=== PATIENT | male | born 1950 | race Caucasian/White ===

== ENCOUNTER 2021-02-20 23:23 | Emergency (ER) | payer MEDICARE ==
[2021-02-21 00:09] LABS: #Basophils 0.1 10x3/uL (0.0-0.2); #Eosinphils 0.1 10x3/uL (0.0-0.5); #Monocytes 0.6 10x3/uL (0.0-1.1); #Neutrophils 6.6 10x3/uL (1.5-8.4); %Basophils 0.6 % (0.0-2.0); %Eosinophils 1.4 % (0.0-6.0); %Lymphocytes 25.3 % (18.0-47.0); %Monocytes 6.3 % (0.0-10.0); %Neutrophils 65.9 % (40.0-75.0); Hemoglobin 13.1 g/dL (13.5-17.5); Mean Corpuscular HGB CONC 33.6 g/dL (32.0-36.0); Mean Corpuscular Hemoglobin 29.6 pg (27.0-33.0); Mean Corpuscular Volume 88.2 fl (81.2-95.1); Mean Platelet Volume 10.5 fl (7.4-10.4); Platelet Count 242 10x3/uL (150-450); RBC Distribution Width 13.5 % (11.5-14.5); Red Blood Cell (RBC) Count 4.42 10x6/uL (4.32-5.72)
[2021-02-21 00:17] LABS: ALT (SGPT) 8 U/L (8-55); AST (SGOT) 13 U/L (5-34); Alkaline Phosphatase 34 U/L (40-110); Anion Gap 14 mmol/L (10-20); BUN (Urea Nitrogen) 15 mg/dL (8.4-25.7); Bilirubin, Total 0.2 mg/dL (0.2-1.2); Calc. Creatinine Clearance 0 mL/min (70-130); Calcium 9.1 mg/dL (7.8-10.44); Carbon Dioxide 24 mmol/L (23-31); Chloride 105 mmol/L (98-107); Globulin 2.3 g/dL (2.4-3.5); Glucose 127 mg/dL (80-115); Potassium 4.1 mmol/L (3.5-5.1); Protein, Total 6.3 g/dL (5.8-8.1); Sodium 139 mmol/L (136-145)
[2021-02-21] MEDS ORDERED: Labetalol HCl 100 MG/20 ML VIAL ONE (01:23)
== END 2021-02-21 01:35 | disposition home or self-care (01) ==
LOC: CSHERS 23:23
DX: I10 Essential (primary) hypertension (principal); E11.42 Type 2 diabetes mellitus with diabetic polyneuropathy; E78.5 Hyperlipidemia, unspecified; E78.00 Pure hypercholesterolemia, unspecified; I25.10 Atherosclerotic heart disease of native coronary artery without angina pectoris; I25.2 Old myocardial infarction; I48.91 Unspecified atrial fibrillation; K21.9 Gastro-esophageal reflux disease without esophagitis; J44.9 Chronic obstructive pulmonary disease, unspecified; G47.30 Sleep apnea, unspecified; F17.210 Nicotine dependence, cigarettes, uncomplicated; Z79.82 Long term (current) use of aspirin; Z79.899 Other long term (current) drug therapy; Z79.84 Long term (current) use of oral hypoglycemic drugs
CPT/HCPCS: 36416; 71045; 80053; 84484; 85025; 93005; 96374

== ENCOUNTER 2021-11-02 23:18 | Emergency (ER) | payer MEDICARE ==
[2021-11-03 00:13] LABS: ALT (SGPT) 9 U/L (8-55); AST (SGOT) 20 U/L (5-34); Albumin 4.1 g/dL (3.4-4.8); Alkaline Phosphatase 36 U/L (40-110); Anion Gap 15 mmol/L (10-20); BUN (Urea Nitrogen) 12 mg/dL (8.4-25.7); Bilirubin, Total 0.3 mg/dL (0.2-1.2); Calc. Creatinine Clearance 0 mL/min (70-130); Calcium 9.3 mg/dL (7.8-10.44); Carbon Dioxide 24 mmol/L (23-31); Chloride 103 mmol/L (98-107); Glucose 146 mg/dL (80-115); Potassium 4.6 mmol/L (3.5-5.1); Protein, Total 7.1 g/dL (5.8-8.1); Sodium 137 mmol/L (136-145)
[2021-11-03 00:35] LABS: #Basophils 0.1 10x3/uL (0.0-0.2); #Eosinphils 0.1 10x3/uL (0.0-0.5); #Monocytes 0.6 10x3/uL (0.0-1.1); #Neutrophils 6.9 10x3/uL (1.5-8.4); %Basophils 0.8 % (0.0-2.0); %Eosinophils 1.2 % (0.0-6.0); %Lymphocytes 25.2 % (18.0-47.0); %Monocytes 5.8 % (0.0-10.0); %Neutrophils 66.7 % (40.0-75.0); Hemoglobin 12.3 g/dL (13.5-17.5); Mean Corpuscular HGB CONC 32.5 g/dL (32.0-36.0); Mean Corpuscular Hemoglobin 29.3 pg (27.0-33.0); Mean Corpuscular Volume 90.2 fl (81.2-95.1); Mean Platelet Volume 10.7 fl (7.4-10.4); Platelet Count 254 10x3/uL (150-450); RBC Distribution Width 13.6 % (11.5-14.5); White Blood Cell (WBC) Count 10.3 10x3/uL (3.5-10.5)
[2021-11-03 01:44] LABS: Troponin I Less than 0.010 ng/mL (< 0.028)
== END 2021-11-03 02:07 | disposition home or self-care (01) ==
LOC: CSHERS 23:18
DX: R07.89 Other chest pain (principal); R42 Dizziness and giddiness; R00.2 Palpitations; I25.10 Atherosclerotic heart disease of native coronary artery without angina pectoris; I25.2 Old myocardial infarction; I48.91 Unspecified atrial fibrillation; K21.9 Gastro-esophageal reflux disease without esophagitis; E78.5 Hyperlipidemia, unspecified; E78.00 Pure hypercholesterolemia, unspecified; I10 Essential (primary) hypertension; E11.40 Type 2 diabetes mellitus with diabetic neuropathy, unspecified; J44.9 Chronic obstructive pulmonary disease, unspecified; G47.30 Sleep apnea, unspecified; F17.210 Nicotine dependence, cigarettes, uncomplicated; Z79.82 Long term (current) use of aspirin; Z79.84 Long term (current) use of oral hypoglycemic drugs; Z79.899 Other long term (current) drug therapy
CPT/HCPCS: 36415; 71045; 80053; 84484; 85025; 93005

== ENCOUNTER 2022-09-15 08:58 | Observation (INO) | payer MEDICARE ==
[2022-09-15 09:50] LABS: #Basophils 0.1 10x3/uL (0.0-0.2); #Eosinphils 0.1 10x3/uL (0.0-0.5); #Monocytes 0.5 10x3/uL (0.0-1.1); #Neutrophils 5.4 10x3/uL (1.5-8.4); %Eosinophils 1.2 % (0.0-6.0); %Lymphocytes 24.3 % (18.0-47.0); %Monocytes 6.2 % (0.0-10.0); %Neutrophils 67.1 % (40.0-75.0); Hemoglobin 13.1 g/dL (13.5-17.5); Mean Corpuscular HGB CONC 34.2 g/dL (32.0-36.0); Mean Corpuscular Hemoglobin 30.2 pg (27.0-33.0); Mean Corpuscular Volume 88.2 fl (81.2-95.1); Mean Platelet Volume 10.2 fl (7.4-10.4); Platelet Count 252 10x3/uL (150-450); RBC Distribution Width 13.6 % (11.5-14.5); Red Blood Cell (RBC) Count 4.34 10x6/uL (4.32-5.72); White Blood Cell (WBC) Count 8.1 10x3/uL (3.5-10.5)
[2022-09-15 09:58] LABS: ALT (SGPT) 13 U/L (8-55); AST (SGOT) 15 U/L (5-34); Albumin 4.3 g/dL (3.4-4.8); Alkaline Phosphatase 34 U/L (40-110); Anion Gap 12 mmol/L (10-20); BUN (Urea Nitrogen) 16 mg/dL (8.4-25.7); Bilirubin, Total 0.4 mg/dL (0.2-1.2); Calc. Creatinine Clearance 0 mL/min (70-130); Calcium 9.6 mg/dL (7.8-10.44); Carbon Dioxide 26 mmol/L (23-31); Chloride 103 mmol/L (98-107); Estimated GFR 94; Globulin 2.3 g/dL (2.4-3.5); Glucose 98 mg/dL (83-110); Potassium 4.9 mmol/L (3.5-5.1); Protein, Total 6.6 g/dL (5.8-8.1); Sodium 136 mmol/L (136-145)
[2022-09-15] MEDS ORDERED: Morphine 2 MG/ML VIAL ONE (10:10)
[2022-09-15] MEDS ORDERED: Ondansetron PF 4 MG/2 ML Vial ONE (10:10)
[2022-09-15 14:03] LABS: Troponin I Less than 0.010 ng/mL (< 0.028)
[2022-09-15] MEDS ORDERED: Ondansetron ODT 4 MG TAB PO PRN (14:21)
[2022-09-15] MEDS ORDERED: Acetaminophen 325 MG TAB PO PRN (14:21)
[2022-09-15] MEDS ORDERED: Ondansetron PF 4 MG/2 ML Vial IVP PRN (14:21)
[2022-09-15] MEDS ORDERED: Nitroglycerin 0.4 MG TAB (25 Tab Bottle) SL PRN (14:23)
[2022-09-15] MEDS ORDERED: Dextrose 5% in Water 1,000 ML IV PRN (14:27)
[2022-09-15] MEDS ORDERED: Dextrose 50% Abboject 50 ML SYRINGE SLOW IVP PRN (14:27)
[2022-09-15] MEDS ORDERED: Docusate 100 MG CAP PO PRN (14:30)
[2022-09-15] MEDS ORDERED: Electrolyte Replacement Protocol 1 EACH FS SCH (14:30)
[2022-09-15 15:09] LABS: Magnesium 1.6 mg/dL (1.6-2.6)
[2022-09-15 16:38] LABS: Troponin I 0.015 ng/mL (< 0.028)
[2022-09-15] MEDS: Sotalol HCl 80 MG TAB PO SCH (20:24)
[2022-09-15] MEDS: metFORMIN 500 MG TAB PO SCH (20:25)
[2022-09-15] MEDS: Famotidine 20 MG TAB PO SCH (20:26)
[2022-09-15] MEDS: Lisinopril 20 MG TAB PO SCH (20:26)
[2022-09-15] MEDS: Apixaban 2.5 MG TAB PO SCH (20:27)
[2022-09-15] MEDS ORDERED: Magnesium 2 GM/50 ML(in water) 2 GM in Premix Bag 1 BAG IVPB SCH (21:00)
[2022-09-15] MEDS ORDERED: Atorvastatin Calcium 40 MG TAB PO SCH (21:00)
[2022-09-15] MEDS ORDERED: Sotalol HCl 80 MG TAB PO SCH (21:00)
[2022-09-15] MEDS ORDERED: traZODone HCl 150 MG TAB PO SCH (21:00)
[2022-09-16 01:57] VITALS: TEMP 97.7
[2022-09-16 04:35] LABS: #Basophils 0.1 10x3/uL (0.0-0.2); #Eosinphils 0.1 10x3/uL (0.0-0.5); #Monocytes 0.6 10x3/uL (0.0-1.1); #Neutrophils 4.3 10x3/uL (1.5-8.4); %Basophils 0.8 % (0.0-2.0); %Eosinophils 1.8 % (0.0-6.0); %Lymphocytes 34.2 % (18.0-47.0); %Neutrophils 54.8 % (40.0-75.0); Hemoglobin 12.4 g/dL (13.5-17.5); Mean Corpuscular HGB CONC 34.7 g/dL (32.0-36.0); Mean Corpuscular Hemoglobin 30.4 pg (27.0-33.0); Mean Corpuscular Volume 87.5 fl (81.2-95.1); Mean Platelet Volume 10.3 fl (7.4-10.4); Platelet Count 224 10x3/uL (150-450); RBC Distribution Width 13.4 % (11.5-14.5); Red Blood Cell (RBC) Count 4.08 10x6/uL (4.32-5.72); White Blood Cell (WBC) Count 7.8 10x3/uL (3.5-10.5)
[2022-09-16 04:42] LABS: Anion Gap 15 mmol/L (10-20); BUN (Urea Nitrogen) 18 mg/dL (8.4-25.7); Calc. Creatinine Clearance 147 mL/min (70-130); Calcium 9.1 mg/dL (7.8-10.44); Carbon Dioxide 23 mmol/L (23-31); Chloride 104 mmol/L (98-107); Estimated GFR 96; Glucose 110 mg/dL (83-110); Magnesium 1.6 mg/dL (1.6-2.6); Potassium 4.6 mmol/L (3.5-5.1); Sodium 137 mmol/L (136-145)
[2022-09-16] MEDS ORDERED: Magnesium 2 GM/50 ML(in water) 2 GM in Premix Bag 1 BAG IVPB SCH (06:00)
[2022-09-16] MEDS ORDERED: Glimepiride 2 MG TAB PO SCH (08:00)
[2022-09-16] MEDS ORDERED: Clopidogrel Bisulfate 75 MG TAB PO SCH (09:00)
[2022-09-16] MEDS ORDERED: Amlodipine 5 MG TAB PO SCH (09:00)
[2022-09-16] MEDS ORDERED: Ascorbic Acid 500 mg Chewable Tablet PO SCH (09:00)
[2022-09-16] MEDS ORDERED: Fenofibrate 48 MG TAB PO SCH (09:00)
[2022-09-16] MEDS: Famotidine 20 MG TAB PO SCH (09:50)
[2022-09-16] MEDS: Lisinopril 20 MG TAB PO SCH (09:50)
[2022-09-16] MEDS: Sotalol HCl 80 MG TAB PO SCH (09:51)
[2022-09-16] MEDS: Apixaban 2.5 MG TAB PO SCH (09:52)
[2022-09-16] MEDS: metFORMIN 500 MG TAB PO SCH (09:56)
[2022-09-16 11:23] VITALS: BMI 36.1
[2022-09-16 12:07] VITALS: BP 128/60
[2022-09-16] MEDS ORDERED: traZODone HCl 50 MG TAB PO SCH (21:00)
== END 2022-09-16 13:50 | disposition home or self-care (01) ==
LOC: CSHERS 08:58 → CSHTELE 15:56
PROVIDERS: ADMIT Family Medicine; ATTEND Family Medicine
DX: R07.89 Other chest pain (principal); E11.42 Type 2 diabetes mellitus with diabetic polyneuropathy; K21.9 Gastro-esophageal reflux disease without esophagitis; J44.9 Chronic obstructive pulmonary disease, unspecified; I25.118 Atherosclerotic heart disease of native coronary artery with other forms of angina pectoris; I25.2 Old myocardial infarction; E78.2 Mixed hyperlipidemia; Z79.01 Long term (current) use of anticoagulants; Z79.84 Long term (current) use of oral hypoglycemic drugs; Z79.899 Other long term (current) drug therapy; Z79.02 Long term (current) use of antithrombotics/antiplatelets; E66.9 Obesity, unspecified; Z68.36 Body mass index [BMI] 36.0-36.9, adult; I48.0 Paroxysmal atrial fibrillation; I65.23 Occlusion and stenosis of bilateral carotid arteries; F17.210 Nicotine dependence, cigarettes, uncomplicated; I11.0 Hypertensive heart disease with heart failure; I50.42 Chronic combined systolic (congestive) and diastolic (congestive) heart failure; N40.1 Benign prostatic hyperplasia with lower urinary tract symptoms; Z95.0 Presence of cardiac pacemaker; Z95.1 Presence of aortocoronary bypass graft
CPT/HCPCS: 71045; 80048; 80053; 82962 ×2; 83735 ×2; 83880; 84443; 84484 ×2; 85025 ×2; 93005; 94760 ×2; 96374; 99285; G0378 ×3; J2270; 36415; 36416; J2405; J3475; J7620

== ENCOUNTER 2024-03-28 15:38 | Observation (INO) | payer MEDICARE ==
[2024-03-28] MEDS ORDERED: Aspirin Chewable 81 MG TAB ONE (15:53)
[2024-03-28 16:09] LABS: #Basophils 0.07 10x3/uL (0.0-0.2); #Eosinphils 0.15 10x3/uL (0.0-0.5); #Monocytes 0.68 10x3/uL (0.0-1.1); #Neutrophils 6.18 10x3/uL (1.5-8.4); %Basophils 0.8 % (0.0-2.0); %Eosinophils 1.7 % (0.0-6.0); %Lymphocytes 17.8 % (18.0-47.0); %Monocytes 7.9 % (0.0-10.0); %Neutrophils 71.6 % (40.0-75.0); Hematocrit 33.9 % (38.8-50.0); Hemoglobin 11.1 g/dL (13.5-17.5); Mean Corpuscular HGB CONC 32.7 g/dL (32.0-36.0); Mean Corpuscular Hemoglobin 26.8 pg (27.0-33.0); Mean Corpuscular Volume 81.9 fL (81.2-95.1); Mean Platelet Volume 9.9 fL (7.4-10.4); Platelet Count 296 10x3/uL (150-450); RBC Distribution Width 15.6 % (11.5-14.5); Red Blood Cell (RBC) Count 4.14 10x6/uL (4.32-5.72); White Blood Cell (WBC) Count 8.6 10x3/uL (3.5-10.5)
[2024-03-28 16:39] LABS: Troponin I 0.015 ng/mL (< 0.028)
[2024-03-28 16:40] LABS: ALT (SGPT) 8 U/L (8-55); AST (SGOT) 18 U/L (5-34); Albumin 3.6 g/dL (3.4-4.8); Alkaline Phosphatase 48 U/L (40-110); Anion Gap 11 mmol/L (10-20); BUN (Urea Nitrogen) 14 mg/dL (8.4-25.7); Bilirubin, Total 0.3 mg/dL (0.2-1.2); Calc. Creatinine Clearance 0 mL/min (70-130); Calcium 8.9 mg/dL (7.8-10.44); Carbon Dioxide 25 mmol/L (23-31); Chloride 102 mmol/L (98-107); Estimated GFR 93; Globulin 2.9 g/dL (2.4-3.5); Glucose 91 mg/dL (83-110); Magnesium 1.5 mg/dL (1.6-2.6); Potassium 4.4 mmol/L (3.5-5.1); Protein, Total 6.5 g/dL (5.8-8.1); Sodium 134 mmol/L (136-145)
[2024-03-28 16:41] LABS: D-Dimer Test 0.36 mcg/mL (0.19-0.50); INR-International Normal Ratio 1.2; Prothrombin Time 12.8 sec (9.5-12.1)
[2024-03-28] MEDS ORDERED: Magnesium 2 GM/50 ML BAG (IN WATER) ONE (17:17)
[2024-03-28] MEDS ORDERED: Acetaminophen 325 MG TAB PO PRN (17:51)
[2024-03-28] MEDS ORDERED: Nitroglycerin 0.4 MG TAB (25 Tab Bottle) SL PRN (17:51)
[2024-03-28] MEDS ORDERED: Ondansetron ODT 4 MG TAB PO PRN (17:51)
[2024-03-28] MEDS ORDERED: Ondansetron PF 4 MG/2 ML Vial IVP PRN (17:51)
[2024-03-28] MEDS ORDERED: Dextrose 50% Abboject 50 ML SYRINGE SLOW IVP PRN (18:29)
[2024-03-28] MEDS ORDERED: Ipratropium/Albuterol 3 ML NEB NEB PRN (18:29)
[2024-03-28] MEDS ORDERED: Dextrose 5% in Water 1,000 ML IV PRN (18:29)
[2024-03-28] MEDS ORDERED: HumaLOG 300 UNITS/3 ML VIAL SC PRN ×2 (18:29)
[2024-03-28] MEDS ORDERED: Glucagon 1 MG/ML KIT IM PRN (18:29)
[2024-03-28] MEDS ORDERED: Electrolyte Replacement Protocol 1 EACH FS PRN (18:30)
[2024-03-28 18:53] LABS: Troponin I 0.011 ng/mL (< 0.028)
[2024-03-28 19:02] LABS: Magnesium 1.8 mg/dL (1.6-2.6)
[2024-03-28 20:53] VITALS: BMI 29.4
[2024-03-28 21:43] LABS: Troponin I 0.012 ng/mL (< 0.028)
[2024-03-28] MEDS: Arformoterol 15 MCG/2 ML NEB NEB SCH (21:50)
[2024-03-28] MEDS: Budesonide 0.5 MG/2 ML NEB INH SCH (21:50)
[2024-03-28] MEDS: Aspirin 325 MG TAB PO SCH (22:51)
[2024-03-28] MEDS: Atorvastatin Calcium 40 MG TAB PO SCH (22:51)
[2024-03-28] MEDS: Famotidine/PF 20 mg/2ml Vial SLOW IVP SCH (22:53)
[2024-03-28] MEDS: Famotidine 20 MG TAB PO SCH (22:53)
[2024-03-28] MEDS: Sotalol HCl 80 MG TAB PO SCH (22:54)
[2024-03-28] MEDS: Isosorbide Dinitrate 10 MG TAB PO SCH (22:54)
[2024-03-28] MEDS: Lisinopril 20 MG TAB PO SCH (22:55)
[2024-03-28] MEDS: traZODone HCl 50 MG TAB PO PRN (22:56)
[2024-03-28] MEDS: Magnesium 2 GM/50 ML(in water) 2 GM in Premix 1 BAG IVPB SCH (22:56)
[2024-03-28] MEDS: Enoxaparin 100 MG (1 mL) SYRINGE SC SCH (23:02)
[2024-03-29] MEDS: ALPRAZolam 0.5 MG TAB PO PRN (00:04)
[2024-03-29 05:16] LABS: #Basophils 0.06 10x3/uL (0.0-0.2); #Eosinphils 0.18 10x3/uL (0.0-0.5); #Monocytes 0.58 10x3/uL (0.0-1.1); #Neutrophils 4.15 10x3/uL (1.5-8.4); %Basophils 0.9 % (0.0-2.0); %Eosinophils 2.8 % (0.0-6.0); %Lymphocytes 21.7 % (18.0-47.0); %Monocytes 9.1 % (0.0-10.0); %Neutrophils 65.2 % (40.0-75.0); Hematocrit 31.7 % (38.8-50.0); Hemoglobin 10.4 g/dL (13.5-17.5); Mean Corpuscular HGB CONC 32.8 g/dL (32.0-36.0); Mean Corpuscular Hemoglobin 26.7 pg (27.0-33.0); Mean Corpuscular Volume 81.5 fL (81.2-95.1); Mean Platelet Volume 9.3 fL (7.4-10.4); Platelet Count 265 10x3/uL (150-450); RBC Distribution Width 15.6 % (11.5-14.5); Red Blood Cell (RBC) Count 3.89 10x6/uL (4.32-5.72); White Blood Cell (WBC) Count 6.4 10x3/uL (3.5-10.5)
[2024-03-29 05:28] LABS: Anion Gap 12 mmol/L (10-20); BUN (Urea Nitrogen) 14 mg/dL (8.4-25.7); Calc. Creatinine Clearance 112 mL/min (70-130); Calcium 8.7 mg/dL (7.8-10.44); Carbon Dioxide 24 mmol/L (23-31); Chloride 106 mmol/L (98-107); Estimated GFR 93; Glucose 86 mg/dL (83-110); Potassium 4.5 mmol/L (3.5-5.1); Sodium 137 mmol/L (136-145)
[2024-03-29] MEDS: Arformoterol 15 MCG/2 ML NEB NEB SCH (07:06)
[2024-03-29] MEDS: Budesonide 0.5 MG/2 ML NEB INH SCH (07:07)
[2024-03-29] MEDS: Aspirin Chewable 81 MG TAB PO SCH (09:42)
[2024-03-29] MEDS: Clopidogrel Bisulfate 75 MG TAB PO SCH (09:42)
[2024-03-29] MEDS: Amlodipine 5 MG TAB PO SCH (09:43)
[2024-03-29] MEDS: Sotalol HCl 80 MG TAB PO SCH (12:15)
[2024-03-29] MEDS ORDERED: Communication Order-Pharmacy FS SCH (12:30)
[2024-03-29 13:02] VITALS: TEMP 97.7
[2024-03-29] MEDS ORDERED: Heparin 10,000 UNITS/ 10 ML VIAL ONE (14:08)
[2024-03-29] MEDS ORDERED: Nitroglycerin 50 MG/250 ML BOT 0 ML ONE (14:08)
[2024-03-29] MEDS ORDERED: Adenosine 6 mg (2 mL) VIAL ONE (14:08)
[2024-03-29] MEDS ORDERED: Lidocaine 1% (PF) 30 ML VIAL ONE (14:08)
[2024-03-29] MEDS ORDERED: Midazolam HCl 2 mg/2 ml Vial ONE (14:45)
[2024-03-29] MEDS ORDERED: fentaNYL 50 mcg/mL 1 mL Vial ONE (14:45)
[2024-03-29] MEDS ORDERED: Iopamidol 300 61% 100 ML VIAL FS ONE (15:06)
[2024-03-29] MEDS ORDERED: Acetaminophen/Codeine 30-300mg Tablet PO PRN ×2 (15:19)
[2024-03-29 18:07] VITALS: BP 146/68
[2024-03-29] MEDS ORDERED: Sotalol HCl 80 MG TAB PO SCH (21:00)
== END 2024-03-29 19:30 | disposition home or self-care (01) ==
LOC: CSHERS 15:38 → CSHTELE 20:06
PROVIDERS: ADMIT Family Medicine; ATTEND Family Medicine
PROC: 4A023N7 Measurement of Cardiac Sampling and Pressure, Left Heart, Percutaneous Approach (ICD-10-PCS; principal; 2024-03-29)
PROC: B208YZZ Plain Radiography of Left Internal Mammary Bypass Graft using Other Contrast (ICD-10-PCS; 2024-03-29)
DX: I24.9 Acute ischemic heart disease, unspecified (principal); I25.10 Atherosclerotic heart disease of native coronary artery without angina pectoris; I11.0 Hypertensive heart disease with heart failure; I50.42 Chronic combined systolic (congestive) and diastolic (congestive) heart failure; E11.40 Type 2 diabetes mellitus with diabetic neuropathy, unspecified; E78.5 Hyperlipidemia, unspecified; I48.91 Unspecified atrial fibrillation; K21.9 Gastro-esophageal reflux disease without esophagitis; J44.9 Chronic obstructive pulmonary disease, unspecified; I25.5 Ischemic cardiomyopathy; I25.2 Old myocardial infarction; Z95.1 Presence of aortocoronary bypass graft; Z95.5 Presence of coronary angioplasty implant and graft; Z79.01 Long term (current) use of anticoagulants; Z79.84 Long term (current) use of oral hypoglycemic drugs; Z79.899 Other long term (current) drug therapy
CPT/HCPCS: 36215; 36225; 71045; 75710; 80048; 80053; 82962 ×2; 83735; 83880; 84484 ×2; 85025 ×2; 85379; 85610; 85730; 93005; 93306; 93459; 94640 ×3; 96365; 96376; 99285; C1760; C1769; G0378 ×3; J2001; J2250; J3010; J3475; Q9967; 36415; 36416; 99152; 99153; J0153; J1644; J7626

== ENCOUNTER 2024-05-17 08:17 | Day surgery (SDC) | payer MEDICARE ==
[2024-05-17 08:59] VITALS: BP 146/67; TEMP 98.6
[2024-05-17 09:04] LABS: #Basophils 0.08 10x3/uL (0.0-0.2); #Eosinphils 0.07 10x3/uL (0.0-0.5); #Monocytes 0.45 10x3/uL (0.0-1.1); #Neutrophils 5.59 10x3/uL (1.5-8.4); %Basophils 1.1 % (0.0-2.0); %Eosinophils 0.9 % (0.0-6.0); %Lymphocytes 15.7 % (18.0-47.0); %Monocytes 6.1 % (0.0-10.0); %Neutrophils 75.9 % (40.0-75.0); Hematocrit 33.5 % (38.8-50.0); Hemoglobin 10.4 g/dL (13.5-17.5); Mean Corpuscular Hemoglobin 25.1 pg (27.0-33.0); Mean Corpuscular Volume 80.9 fL (81.2-95.1); Mean Platelet Volume 9.8 fL (7.4-10.4); Platelet Count 319 10x3/uL (150-450); RBC Distribution Width 16.2 % (11.5-14.5); Red Blood Cell (RBC) Count 4.14 10x6/uL (4.32-5.72); White Blood Cell (WBC) Count 7.4 10x3/uL (3.5-10.5)
[2024-05-17 09:19] LABS: INR-International Normal Ratio 1.3; PTT 32.6 sec (22.0-33.0); Prothrombin Time 13.7 sec (9.5-12.1)
[2024-05-17] MEDS ORDERED: PROPOFOL 20 ML ONE (09:33)
[2024-05-17] MEDS ORDERED: ePHEDrine Sulfate 50 MG/10 ML VIAL ONE (09:33)
[2024-05-17] MEDS ORDERED: Lidocaine 2% PF 5 ML VIAL ONE (09:36)
[2024-05-17 09:38] LABS: ALT (SGPT) 9 U/L (8-55); AST (SGOT) 18 U/L (5-34); Albumin 3.4 g/dL (3.4-4.8); Alkaline Phosphatase 45 U/L (40-110); Anion Gap 13 mmol/L (10-20); BUN (Urea Nitrogen) 17 mg/dL (8.4-25.7); Bilirubin, Total 0.5 mg/dL (0.2-1.2); Calc. Creatinine Clearance 110 mL/min (70-130); Calcium 9.6 mg/dL (7.8-10.44); Carbon Dioxide 25 mmol/L (23-31); Chloride 102 mmol/L (98-107); Estimated GFR 93; Globulin 3.7 g/dL (2.4-3.5); Glucose 118 mg/dL (83-110); Magnesium 1.5 mg/dL (1.6-2.6); Potassium 4.3 mmol/L (3.5-5.1); Protein, Total 7.1 g/dL (5.8-8.1); Sodium 136 mmol/L (136-145)
== END 2024-05-17 11:30 | disposition home or self-care (01) ==
LOC: CSHSDC 08:17
PROVIDERS: ATTEND Specialist
PROC: 5A2204Z Restoration of Cardiac Rhythm, Single (ICD-10-PCS; principal; 2024-05-17)
DX: I48.19 Other persistent atrial fibrillation (principal); I11.0 Hypertensive heart disease with heart failure; I50.32 Chronic diastolic (congestive) heart failure; E11.42 Type 2 diabetes mellitus with diabetic polyneuropathy; J44.9 Chronic obstructive pulmonary disease, unspecified; I25.10 Atherosclerotic heart disease of native coronary artery without angina pectoris; K21.9 Gastro-esophageal reflux disease without esophagitis; E78.2 Mixed hyperlipidemia; Z79.84 Long term (current) use of oral hypoglycemic drugs; Z79.01 Long term (current) use of anticoagulants; Z79.899 Other long term (current) drug therapy
CPT/HCPCS: 80053; 83735; 85025; 85610; 85730; 92960; 93005; J2001; J2704; 93010

== ENCOUNTER 2024-08-16 15:24 | Emergency (ER) | payer MEDICARE ==
[2024-08-16 16:39] LABS: #Basophils 0.06 10x3/uL (0.0-0.2); #Eosinophils 0.29 10x3/uL (0.0-0.5); #Neutrophils 6.04 10x3/uL (1.5-8.4); %Basophils 0.8 % (0.0-2.0); %Eosinophils 3.7 % (0.0-6.0); %Lymphocytes 12.7 % (18.0-47.0); %Monocytes 6.3 % (0.0-10.0); %Neutrophils 76.1 % (40.0-75.0); Hemoglobin 9.3 g/dL (13.5-17.5); Mean Corpuscular Volume 80.6 fL (81.2-95.1); Mean Platelet Volume 8.9 fL (7.4-10.4); Platelet Count 270 10x3/uL (150-450); RBC Distribution Width 17.3 % (11.5-14.5); Red Blood Cell (RBC) Count 3.72 10x6/uL (4.32-5.72); White Blood Cell (WBC) Count 7.9 10x3/uL (3.5-10.5)
[2024-08-16 17:02] LABS: ALT (SGPT) 13 U/L (8-55); AST (SGOT) 19 U/L (5-34); Albumin 3.4 g/dL (3.4-4.8); Alkaline Phosphatase 62 U/L (40-110); Anion Gap 13 mmol/L (10-20); BUN (Urea Nitrogen) 16 mg/dL (8.4-25.7); Bilirubin, Total 0.4 mg/dL (0.2-1.2); Calc. Creatinine Clearance 0 mL/min (70-130); Calcium 9.3 mg/dL (7.8-10.44); Carbon Dioxide 23 mmol/L (23-31); Chloride 105 mmol/L (98-107); Estimated GFR 95; Globulin 2.9 g/dL (2.4-3.5); Lipase 32 U/L (8-78); Potassium 4.3 mmol/L (3.5-5.1); Protein, Total 6.3 g/dL (5.8-8.1); Sodium 137 mmol/L (136-145)
[2024-08-16 17:07] LABS: Glucose 49 mg/dL (83-110)
[2024-08-16 17:08] LABS: Troponin I 0.013 ng/mL (< 0.028)
== END 2024-08-16 17:44 | disposition home or self-care (01) ==
LOC: CSHERS 15:24
DX: R07.9 Chest pain, unspecified (principal); I25.10 Atherosclerotic heart disease of native coronary artery without angina pectoris; I25.2 Old myocardial infarction; E11.9 Type 2 diabetes mellitus without complications; I10 Essential (primary) hypertension; I48.91 Unspecified atrial fibrillation; J44.9 Chronic obstructive pulmonary disease, unspecified; F17.200 Nicotine dependence, unspecified, uncomplicated
CPT/HCPCS: 36416; 71045; 80053; 83690; 84484; 85025; 93005

== ENCOUNTER 2024-08-18 09:46 | Inpatient (IN) | payer MEDICARE ==
[2024-08-18 10:14] LABS: #Basophils 0.07 10x3/uL (0.0-0.2); #Eosinophils 0.23 10x3/uL (0.0-0.5); #Monocytes 0.47 10x3/uL (0.0-1.1); #Neutrophils 6.08 10x3/uL (1.5-8.4); %Basophils 0.9 % (0.0-2.0); %Lymphocytes 11.6 % (18.0-47.0); %Neutrophils 78.2 % (40.0-75.0); Hematocrit 32.4 % (38.8-50.0); Mean Corpuscular HGB CONC 30.9 g/dL (32.0-36.0); Mean Corpuscular Hemoglobin 24.8 pg (27.0-33.0); Mean Corpuscular Volume 80.2 fL (81.2-95.1); Mean Platelet Volume 9.6 fL (7.4-10.4); Platelet Count 279 10x3/uL (150-450); RBC Distribution Width 17.2 % (11.5-14.5); Red Blood Cell (RBC) Count 4.04 10x6/uL (4.32-5.72); White Blood Cell (WBC) Count 7.8 10x3/uL (3.5-10.5)
[2024-08-18 10:29] LABS: Troponin I 0.015 ng/mL (< 0.028)
[2024-08-18 10:32] LABS: ALT (SGPT) 17 U/L (8-55); AST (SGOT) 27 U/L (5-34); Albumin 3.6 g/dL (3.4-4.8); Alkaline Phosphatase 65 U/L (40-110); Anion Gap 17 mmol/L (10-20); BUN (Urea Nitrogen) 21 mg/dL (8.4-25.7); Bilirubin, Total 0.6 mg/dL (0.2-1.2); Calc. Creatinine Clearance 0 mL/min (70-130); Calcium 9.9 mg/dL (7.8-10.44); Carbon Dioxide 20 mmol/L (23-31); Chloride 101 mmol/L (98-107); Estimated GFR 93; Globulin 3.8 g/dL (2.4-3.5); Glucose 126 mg/dL (83-110); Potassium 4.6 mmol/L (3.5-5.1); Protein, Total 7.4 g/dL (5.8-8.1); Sodium 133 mmol/L (136-145)
[2024-08-18] MEDS ORDERED: Ipratropium/Albuterol 3 ML NEB ONE (11:51)
[2024-08-18] MEDS ORDERED: Acetaminophen 325 MG TAB PO PRN (12:10)
[2024-08-18] MEDS ORDERED: Nitroglycerin 0.4 MG TAB (25 Tab Bottle) SL PRN (12:10)
[2024-08-18] MEDS ORDERED: Glucagon 1 MG/ML KIT IM PRN (12:23)
[2024-08-18] MEDS ORDERED: Dextrose 5% in Water 1,000 ML IV PRN (12:23)
[2024-08-18] MEDS ORDERED: Dextrose 50% Abboject 50 ML SYRINGE SLOW IVP PRN (12:23)
[2024-08-18] MEDS ORDERED: Insulin Lispro 100 UNIT/ML 10 ML VIAL SC PRN (12:23)
[2024-08-18] MEDS ORDERED: Ipratropium/Albuterol 3 ML NEB NEB SCH (13:00)
[2024-08-18 13:20] VITALS: BMI 28.2
[2024-08-18 13:32] LABS: Troponin I 0.019 ng/mL (< 0.028)
[2024-08-18] MEDS: Furosemide 20 MG (2 mL) VIAL SLOW IVP SCH (15:26)
[2024-08-18] MEDS: Ipratropium Bromide 2.5 ml Neb NEB PRN (19:25)
[2024-08-18] MEDS ORDERED: Sotalol HCl 80 MG TAB PO SCH (21:00)
[2024-08-18] MEDS: ALPRAZolam 1 MG TAB PO SCH (21:56)
[2024-08-18] MEDS: Isosorbide Dinitrate 10 MG TAB PO SCH (21:57)
[2024-08-18] MEDS: Atorvastatin Calcium 40 MG TAB PO SCH (21:57)
[2024-08-18] MEDS: Lisinopril 20 MG TAB PO SCH (21:57)
[2024-08-19 04:15] LABS: #Basophils 0.08 10x3/uL (0.0-0.2); #Eosinophils 0.25 10x3/uL (0.0-0.5); #Monocytes 0.54 10x3/uL (0.0-1.1); #Neutrophils 4.42 10x3/uL (1.5-8.4); %Basophils 1.3 % (0.0-2.0); %Eosinophils 3.9 % (0.0-6.0); %Lymphocytes 16.4 % (18.0-47.0); %Monocytes 8.5 % (0.0-10.0); %Neutrophils 69.6 % (40.0-75.0); Hematocrit 30.2 % (38.8-50.0); Hemoglobin 9.8 g/dL (13.5-17.5); Mean Corpuscular HGB CONC 32.5 g/dL (32.0-36.0); Mean Corpuscular Hemoglobin 25.5 pg (27.0-33.0); Mean Corpuscular Volume 78.4 fL (81.2-95.1); Platelet Count 274 10x3/uL (150-450); RBC Distribution Width 17.2 % (11.5-14.5); Red Blood Cell (RBC) Count 3.85 10x6/uL (4.32-5.72); White Blood Cell (WBC) Count 6.4 10x3/uL (3.5-10.5)
[2024-08-19 04:32] LABS: Anion Gap 15 mmol/L (10-20); BUN (Urea Nitrogen) 19 mg/dL (8.4-25.7); Calc. Creatinine Clearance 117 mL/min (70-130); Calcium 9.5 mg/dL (7.8-10.44); Carbon Dioxide 21 mmol/L (23-31); Chloride 104 mmol/L (98-107); Estimated GFR 95; Glucose 109 mg/dL (83-110); Sodium 136 mmol/L (136-145)
[2024-08-19] MEDS: Ipratropium Bromide 2.5 ml Neb NEB SCH (07:45)
[2024-08-19] MEDS: Amlodipine 5 MG TAB PO SCH (09:54)
[2024-08-19] MEDS: Clopidogrel Bisulfate 75 MG TAB PO SCH (09:54)
[2024-08-19] MEDS: Empagliflozin 10 MG TAB PO SCH (09:59)
[2024-08-19 11:04] LABS: Magnesium 1.5 mg/dL (1.6-2.6)
[2024-08-19] MEDS: Magnesium 2 GM/50 ML(in water) 2 GM in Premix 1 BAG IVPB SCH (12:37)
[2024-08-19 13:01] LABS: Iron 26 ug/dL (65-175); Iron Binding Capacity, Total 446 mcg/dL (261-462)
[2024-08-19] MEDS ORDERED: Iron Sucrose Complex 200 MG in Sodium Chloride 0.9% 100 ML IVPB SCH (17:00)
[2024-08-19] MEDS: Sodium Ferric Gluconate 250 MG in Sodium Chloride 0.9% 250 ML 250 ML IVPB SCH (19:31)
[2024-08-19] MEDS: Apixaban 5 MG TAB PO SCH (22:14)
[2024-08-20 04:26] LABS: #Basophils 0.08 10x3/uL (0.0-0.2); #Eosinophils 0.17 10x3/uL (0.0-0.5); #Monocytes 0.72 10x3/uL (0.0-1.1); %Basophils 0.7 % (0.0-2.0); %Eosinophils 1.4 % (0.0-6.0); %Monocytes 6.1 % (0.0-10.0); %Neutrophils 86.5 % (40.0-75.0); Hematocrit 35.7 % (38.8-50.0); Mean Corpuscular HGB CONC 30.8 g/dL (32.0-36.0); Mean Corpuscular Hemoglobin 26.4 pg (27.0-33.0); Mean Corpuscular Volume 85.8 fL (81.2-95.1); Mean Platelet Volume 9.7 fL (7.4-10.4); Platelet Count 267 10x3/uL (150-450); Red Blood Cell (RBC) Count 4.16 10x6/uL (4.32-5.72); White Blood Cell (WBC) Count 11.8 10x3/uL (3.5-10.5)
[2024-08-20 04:49] VITALS: TEMP 97.4
[2024-08-20 04:50] LABS: Anion Gap 15 mmol/L (10-20); BUN (Urea Nitrogen) 19 mg/dL (8.4-25.7); Calc. Creatinine Clearance 103 mL/min (70-130); Calcium 9.7 mg/dL (7.8-10.44); Carbon Dioxide 25 mmol/L (23-31); Chloride 102 mmol/L (98-107); Estimated GFR 92; Glucose 120 mg/dL (83-110); Potassium 4.1 mmol/L (3.5-5.1); Sodium 138 mmol/L (136-145)
[2024-08-20] MEDS ORDERED: Empagliflozin 10 MG TAB PO SCH (09:45)
[2024-08-20 10:16] VITALS: BP 105/62
[2024-08-20] MEDS: Empagliflozin 10 MG TAB PO SCH (10:19)
[2024-08-20] MEDS: FLU (Fluad Triv) TS24-25 (65UP)/MF59C/PF 45 MCG/0.5 ML Syringe IM ONE (11:06)
== END 2024-08-20 12:54 | disposition home or self-care (01) | DRG 291 ==
LOC: CSHERS 09:46 → CSHTELE 11:58 → OBSVTOIN 11:58
PROVIDERS: ADMIT Internal Medicine; ATTEND Hospitalist
DX: I11.0 Hypertensive heart disease with heart failure (principal); I50.33 Acute on chronic diastolic (congestive) heart failure; J96.01 Acute respiratory failure with hypoxia; I48.19 Other persistent atrial fibrillation; J44.1 Chronic obstructive pulmonary disease with (acute) exacerbation; I49.5 Sick sinus syndrome; E78.2 Mixed hyperlipidemia; E11.59 Type 2 diabetes mellitus with other circulatory complications; I25.10 Atherosclerotic heart disease of native coronary artery without angina pectoris; Z95.0 Presence of cardiac pacemaker; Z95.1 Presence of aortocoronary bypass graft; K21.9 Gastro-esophageal reflux disease without esophagitis; N40.0 Benign prostatic hyperplasia without lower urinary tract symptoms; E66.9 Obesity, unspecified; Z95.5 Presence of coronary angioplasty implant and graft; E11.42 Type 2 diabetes mellitus with diabetic polyneuropathy; F17.210 Nicotine dependence, cigarettes, uncomplicated; F41.1 Generalized anxiety disorder; Z88.8 Allergy status to other drugs, medicaments and biological substances; Z79.84 Long term (current) use of oral hypoglycemic drugs; Z79.899 Other long term (current) drug therapy; Z79.02 Long term (current) use of antithrombotics/antiplatelets; Z79.51 Long term (current) use of inhaled steroids; Z79.01 Long term (current) use of anticoagulants; Z68.28 Body mass index [BMI] 28.0-28.9, adult; Z90.49 Acquired absence of other specified parts of digestive tract; Z79.82 Long term (current) use of aspirin; R07.9 Chest pain, unspecified; I25.2 Old myocardial infarction; E11.9 Type 2 diabetes mellitus without complications; I10 Essential (primary) hypertension; I48.91 Unspecified atrial fibrillation; J44.9 Chronic obstructive pulmonary disease, unspecified; F17.200 Nicotine dependence, unspecified, uncomplicated
CPT/HCPCS: 36415; 36416; 71045; 80048; 80053; 82728; 83540; 83550; 83690; 83735; 83880; 84443; 84484; 85025; 85379; 93005; 93010; 94640; 94760; 94762; J1940; J2916; J3475; J7050; J7620; J7644

== ENCOUNTER 2024-10-18 08:30 | Day surgery (SDC) | payer OTHER ==
[2024-10-18 09:12] LABS: #Basophils 0.05 10x3/uL (0.0-0.2); #Neutrophils 9.49 10x3/uL (1.5-8.4); %Basophils 0.4 % (0.0-2.0); %Eosinophils 0.9 % (0.0-6.0); %Lymphocytes 10.7 % (18.0-47.0); %Neutrophils 81.7 % (40.0-75.0); Hematocrit 40.2 % (38.8-50.0); Hemoglobin 12.6 g/dL (13.5-17.5); Mean Corpuscular HGB CONC 31.3 g/dL (32.0-36.0); Mean Corpuscular Hemoglobin 25.7 pg (27.0-33.0); Mean Corpuscular Volume 81.9 fL (81.2-95.1); Mean Platelet Volume 9.3 fL (7.4-10.4); Platelet Count 421 10x3/uL (150-450); RBC Distribution Width 17.5 % (11.5-14.5); Red Blood Cell (RBC) Count 4.91 10x6/uL (4.32-5.72); White Blood Cell (WBC) Count 11.63 10x3/uL (3.5-10.5)
[2024-10-18 09:24] LABS: INR-International Normal Ratio 1.4; PTT 35.6 sec (22.0-33.0); Prothrombin Time 14.4 sec (9.5-12.1)
[2024-10-18 09:26] LABS: ALT (SGPT) 18 U/L (8-55); AST (SGOT) 23 U/L (5-34); Albumin 3.4 g/dL (3.4-4.8); Alkaline Phosphatase 81 U/L (40-110); Anion Gap 14 mmol/L (10-20); BUN (Urea Nitrogen) 19 mg/dL (8.4-25.7); Bilirubin, Total 0.5 mg/dL (0.2-1.2); Calc. Creatinine Clearance 0 mL/min (70-130); Carbon Dioxide 25 mmol/L (23-31); Chloride 102 mmol/L (98-107); Estimated GFR 92; Globulin 4.5 g/dL (2.4-3.5); Glucose 142 mg/dL (83-110); Potassium 3.9 mmol/L (3.5-5.1); Protein, Total 7.9 g/dL (5.8-8.1); Sodium 137 mmol/L (136-145)
[2024-10-18 09:39] VITALS: BP 138/65; TEMP 98
[2024-10-18] MEDS ORDERED: FLU (Fluad Triv) TS24-25 (65UP)/MF59C/PF 45 MCG/0.5 ML Syringe IM ONE (09:45)
[2024-10-18] MEDS ORDERED: KETAMINE 100 MG/ML (5ML VIAL) ONE (09:55)
== END 2024-10-18 11:40 | disposition home or self-care (01) ==
LOC: CSHSDC 08:30
PROVIDERS: ATTEND Specialist
PROC: B24BZZ4 Ultrasonography of Heart with Aorta, Transesophageal (ICD-10-PCS; principal; 2024-10-18)
DX: I48.19 Other persistent atrial fibrillation (principal); I25.118 Atherosclerotic heart disease of native coronary artery with other forms of angina pectoris; I49.5 Sick sinus syndrome; I65.23 Occlusion and stenosis of bilateral carotid arteries; I11.0 Hypertensive heart disease with heart failure; I50.32 Chronic diastolic (congestive) heart failure; E78.2 Mixed hyperlipidemia; E11.9 Type 2 diabetes mellitus without complications; J44.9 Chronic obstructive pulmonary disease, unspecified; F17.200 Nicotine dependence, unspecified, uncomplicated; Z95.1 Presence of aortocoronary bypass graft; Z95.0 Presence of cardiac pacemaker; Z90.49 Acquired absence of other specified parts of digestive tract; Z90.89 Acquired absence of other organs; Z88.8 Allergy status to other drugs, medicaments and biological substances; Z79.51 Long term (current) use of inhaled steroids; Z79.02 Long term (current) use of antithrombotics/antiplatelets; Z79.84 Long term (current) use of oral hypoglycemic drugs; Z79.01 Long term (current) use of anticoagulants; Z79.899 Other long term (current) drug therapy
CPT/HCPCS: 80053; 85025; 85610; 85730; 93312